=== PATIENT | female | born 1990 | race Two or more races ===

== ENCOUNTER 2025-02-23 10:33 | Inpatient (IN) | payer OTHER ==
[~2025-02-23] VITALS: Ht 274.3 cm; Wt 70.8 kg
[2025-02-23] MEDS ORDERED: BUPIVACAINE HCL/Mpf 0.5% 10ML VIAL ONE (13:57)
[2025-02-23] MEDS ORDERED: DILTIAZEM HCL 25 MG/5 ML VIAL IV ONE (14:32)
[2025-02-23] MEDS ORDERED: SUGAMMADEX SODIUM 200 MG/2 ML VIAL IV ONE (14:45)
[2025-02-23] MEDS ORDERED: ACETAMINOPHEN 500 MG GEL..CAP PO NR (17:15)
[2025-02-23 17:49] LABS: HEMATOCRIT 34.8 % (36.0-45.00); HEMOGLOBIN 11.1 g/dL (12.0-15.00); MEAN CELL VOLUME 73.9 fL (80.00-100.00); MEAN CORPUSCULAR HEMOGLOBIN 23.6 pg (27.00-32.0); MEAN CORPUSCULAR HGB CONC 31.9 g/dl (32.0-36.0); PLATELET COUNT 374 K/uL (150-450); RED BLOOD COUNT 4.72 M/uL (4.00-6.00); RED CELL DISTRIBUTION WIDTH 15.4 % (11.5-14.5)
[2025-02-23 17:59] LABS: INR 1.03; PROTHROMBIN TIME 11.2 SECONDS (9.0-11.5)
[2025-02-23 18:12] LABS: ALBUMIN 2.9 gm/dL (3.4-5.0); BILIRUBIN TOTAL 0.28 mg/dL (0.3-1.2); CALCIUM 8.9 mg/dL (8.5-10.1); CREATININE SERUM 0.68 mg/dL (0.55-1.02); GFR 98.46; GLOBULINA 3.4 G/DL (2.4-3.5); MAGNESIUM 1.7 mg/dL (1.8-2.4); PHOSPHOROUS 3.7 mg/dL (2.5-4.9); POTASSIUM 4.14 mEq/L (3.5-5.1); TOTAL PROTEIN 6.3 gm/dL (6.4-8.2); TSH 1.46 uIU/mL (0.358-3.74)
[2025-02-23 19:32] LABS: URINE APPEARANCE Clear; URINE BILIRRUBIN Negative (NEGATIVE); URINE BLOOD NHT; URINE COLOR Yellow; URINE GLUCOSE Negative (NEGATIVE); URINE LEUKOCYTE Negative; URINE NITRATE Negative; URINE PROTEIN Negative (NEGATIVE); URINE UROBILINOGEN 0.2 E.U./dl
[2025-02-23 19:35] LABS: URINE BACTERIA 45.2 uL (0.0-1933); URINE EPITHELIAL CELLS 3.6 uL (0.0-38.8); URINE WBC 10.6 uL (0.0-23.2)
[2025-02-23 19:41] LABS: URINE CAST 0.29 uL (0.0-1.40); URINE KETONE 40 (NEGATIVE)
[2025-02-23] MEDS ORDERED: ACETAMINOPHEN 500 MG GEL..CAP PO PRN (21:00)
[2025-02-23] MEDS ORDERED: RINGERS SOLUTION,LACTATED 1,000 ML IV SCH (21:00)
[2025-02-23 21:34] VITALS: O2SAT 90
[2025-02-24] VITALS (7 sets, daily range): BP systolic 100–126; BP diastolic 62–85; O2SAT 96–100
[2025-02-24] MEDS ORDERED: ENOXAPARIN SODIUM 40 MG/0.4 ML SYRINGE SUBCUTANEO SCH (09:00)
[2025-02-24] MEDS ORDERED: PANTOPRAZOLE SODIUM 40 MG TABLET.DR PO SCH (09:00)
[2025-02-24] MEDS ORDERED: METOPROLOL SUCCINATE 25 MG TAB.SR.24H PO SCH (10:32)
[2025-02-24] MEDS ORDERED: MAGNESIUM SULFATE IN WATER 50 ML IV STA (10:33)
[2025-02-24] MEDS ORDERED: METOPROLOL SUCCINATE 25 MG TAB.SR.24H PO STA (10:37)
[2025-02-24] MEDS ORDERED: DILTIAZEM HCL 25 MG/5 ML VIAL IV ONE (14:45)
[2025-02-24] MEDS ORDERED: SUGAMMADEX SODIUM 200 MG/2 ML VIAL IV ONE (14:45)
== END 2025-02-24 17:55 | disposition home or self-care (01) | DRG 760 ==
LOC: CIR.AMB 10:33 → MEDJ 16:43 → O/R 16:43 → MEDJ 19:28
PROVIDERS: Internal Medicine; ADMIT Obstetrics & Gynecology; ATTEND Obstetrics & Gynecology
PROC: B246ZZZ Ultrasonography of Right and Left Heart (ICD-10-PCS; 2025-02-23)
PROC: 4A1HXCZ Monitoring of Products of Conception, Cardiac Rate, External Approach (ICD-10-PCS; principal; 2025-02-23 07:00)
DX: Z30.2 Encounter for sterilization (principal); I47.10 Supraventricular tachycardia, unspecified; T41.295A Adverse effect of other general anesthetics, initial encounter; Y65.8 Other specified misadventures during surgical and medical care; Y92.234 Operating room of hospital as the place of occurrence of the external cause; T88.59XA Other complications of anesthesia, initial encounter; Z53.09 Procedure and treatment not carried out because of other contraindication

== ENCOUNTER 2025-03-02 05:14 | Day surgery (SDC) | payer OTHER ==
[2025-03-02] MEDS ORDERED: POVIDONE-IODINE 118 ML BOTT TOP ONE (11:16)
[2025-03-02] MEDS ORDERED: SUGAMMADEX SODIUM 200 MG/2 ML VIAL IV ONE (12:19)
[2025-03-02] MEDS ORDERED: KETOROLAC TROMETHAMINE 30 MG VIAL IV ONE (12:30)
[2025-03-02] MEDS ORDERED: KETOROLAC TROMETHAMINE 30 MG VIAL ONE (13:48)
== END 2025-03-02 16:15 | disposition home or self-care (01) ==
LOC: CIR.AMB 05:14
PROVIDERS: ATTEND Obstetrics & Gynecology
DX: R10.2 Pelvic and perineal pain (principal); Z30.2 Encounter for sterilization